=== PATIENT | female | born 1990 | race Asian ===

== ENCOUNTER 2017-07-13 10:59 | Inpatient (IN) | payer SELFPAY ==
[~2017-07-13] VITALS: Ht 174 cm; Wt 68.0 kg
[2017-07-13] MEDS ORDERED: OXYTOCIN/NORMAL SALINE 1,000 ML IV SCH (11:44)
[2017-07-13] MEDS ORDERED: LR 1,000 ML IV ONE (11:44)
[2017-07-13] MEDS ORDERED: LR 1,000 ML IV SCH (11:44)
[2017-07-13] MEDS ORDERED: NALBUPHINE HCL 10 MG/ML AMP IVP PRN (11:45)
[2017-07-13] MEDS ORDERED: TERBUTALINE SULFATE 1 MG/ML VIAL SUBCUT ONE (12:00)
[2017-07-13] MEDS ORDERED: AMPICILLIN SODIUM 2 GM in NS 100 ML IV ONE (12:00)
[2017-07-13 12:36] LABS: HEMATOCRIT 38.1 % (36-48); HEMOGLOBIN 13.1 g/dL (12.0-16.0); MEAN CORPUSCULAR HEMOGLOBIN 34 pg (27-31); MEAN CORPUSCULAR HGB CONC 34 % (32-36); MEAN CORPUSCULAR VOLUME 99 fL (79.0-98.0); PLATELET COUNT (AUTO) 129 K/uL (130-430); RED BLOOD CELL COUNT(AUTO) 3.85 MIL/uL (4.2-6.2); RED CELL DISTRIBUTION WIDTH 12.6 % (9.0-15.0); WHITE BLOOD COUNT (AUTO) 9.4 K/uL (4.8-10.8)
[2017-07-13 13:29] LABS: BASOPHILS % (MANUAL) 0 % (0-2); EOSINOPHILS % (MANUAL) 0 % (0-7); LYMPHOCYTES % (MANUAL) 18 % (20-46); MONOCYTES % (MANUAL) 6 % (0-11)
[2017-07-13] MEDS: AMPICILLIN SODIUM 1 GM in NS 50 ML IV SCH ×2 (16:00→20:12)
[2017-07-13 18:30] VITALS: BP_SYST 116
[2017-07-13] MEDS ORDERED: ACETAMINOPHEN 325 MG TABLET PO PRN (20:00)
[2017-07-13] MEDS ORDERED: ACETAMINOPHEN 325 MG TABLET ONE (20:04)
[2017-07-13] MEDS ORDERED: FENT2mCg/mL-ROPIVA0.2%/NS EPID 150 ML EP ONE (23:40)
[2017-07-14] MEDS: AMPICILLIN SODIUM 1 GM in NS 50 ML IV SCH (00:24)
[2017-07-14] MEDS ORDERED: OXYTOCIN/NORMAL SALINE 1,000 ML IV SCH (03:20)
[2017-07-14] MEDS ORDERED: OXYTOCIN/NORMAL SALINE 1,000 ML IV ONE (03:20)
[2017-07-14] MEDS ORDERED: DERMOPLAST SPRAY TP PRN (03:30)
[2017-07-14] MEDS ORDERED: SENNOSIDES/DOCUSATE SODIUM 1 TAB TABLET(SENOKOT-S) PO PRN (03:30)
[2017-07-14] MEDS ORDERED: MEASLES,MUMPS&RUBELLA VACC/PF 12500 UNIT/0.5 ML VIAL SUBQ PRN (03:30)
[2017-07-14] MEDS ORDERED: GLYCERIN/WITCH HAZEL (TUCKS PADS) TP PRN (03:30)
[2017-07-14] MEDS ORDERED: HYDROcodone/ACETAMIN 5-325 MG TAB (NORCO/ VICODIN) PO PRN ×2 (03:30)
[2017-07-14] MEDS ORDERED: TEMAZEPAM 15 MG CAPSULE PO PRN (03:30)
[2017-07-14] MEDS ORDERED: ACETAMINOPHEN 325 MG TABLET PO PRN (03:30)
[2017-07-14] MEDS ORDERED: HYDROCORTISONE 0.5%, 28.35 GM TOPICAL CREAM TP PRN (03:30)
[2017-07-14] MEDS ORDERED: LANOLIN 7 GM OINT. TP PRN (03:30)
[2017-07-14] MEDS ORDERED: RHO(D) IMMUNE GLOBULIN/MALTOSE 1500 UNITS/1.3 ML (WINHRO) IM PRN (03:30)
[2017-07-14] MEDS ORDERED: METHYLERGONOVINE MALEATE 0.2 MG TABLET PO PRN (03:30)
[2017-07-14] MEDS ORDERED: DOCUSATE SODIUM 100 MG CAPSULE PO PRN (03:30)
[2017-07-14] MEDS ORDERED: ANUSOL 1 EA SUPP.RECT (PREPARATION H) RC PRN (03:30)
[2017-07-14] MEDS: IBUPROFEN 600 MG TABLET PO SCH ×4 (05:40→23:54)
[2017-07-15] MEDS: IBUPROFEN 600 MG TABLET PO SCH (05:47)
[2017-07-15 07:58] LABS: HEMATOCRIT 24.2 % (36-48); HEMOGLOBIN 8.5 g/dL (12.0-16.0)
[2017-07-15] MEDS ORDERED: FLU VACC QS 2017-18(36MOS+)/PF 0.5 ML/SYR SYRINGE I.M. PRN (13:00)
== END 2017-07-15 13:40 | disposition home or self-care (01) | DRG 775 ==
LOC: SPU 10:59 → OBSVTOIN 10:59
PROVIDERS: ADMIT Obstetrics & Gynecology; ATTEND Obstetrics & Gynecology
PROC: 3E0R3BZ Introduction of Anesthetic Agent into Spinal Canal, Percutaneous Approach (ICD-10-PCS; principal; 2017-07-14)
PROC: 10E0XZZ Delivery of Products of Conception, External Approach (ICD-10-PCS; 2017-07-14)
PROC: 00HU33Z Insertion of Infusion Device into Spinal Canal, Percutaneous Approach (ICD-10-PCS; 2017-07-14)
PROC: 0W8NXZZ Division of Female Perineum, External Approach (ICD-10-PCS; 2017-07-14)
DX: O69.81X0 Labor and delivery complicated by cord around neck, without compression, not applicable or unspecified (principal); Z37.0 Single live birth; Z3A.39 39 weeks gestation of pregnancy
CPT/HCPCS: 36415; 81002-TC; 85007; 85018-TC; 85027; 86592; 86886; 86900; 86901; J0290; J2590; J3010; J7120; Q2037